=== PATIENT | female | born 1960 | race Caucasian/White ===

== ENCOUNTER 2023-02-19 16:57 | Emergency (ER) | payer SELFPAY ==
[2023-02-19 17:04] VITALS: BP 125/79; PULSE 88; RESP 16; TEMP 36.6; O2SAT 96
--- NOTE | 2023-02-19 19:34 | PC.NURSE ---
patient brought back from waiting room at this time, patient with independent and steady gait. patient states she was in the grocery store and did not notice a grape on the ground, states she stepped on the grape causing her to slip and fall. states her sister witnessed the fall and told patient she fell into a splits position. patient complaining of right shoulder pain, left inner thigh pain, left thumb pain that travels up wrist, and bilateral pain under both buttocks. patient denies LOC and denies head injury. patient was ambulatory after fall without issue. denies visual changes, dizziness, nausea or vomiting.
--- NOTE | 2023-02-19 19:42 | ED.FALL1 ---
HPI - Fall General Chief Complaint: Fall Stated Complaint: NECK, HAND, HIP PAIN FROM FALL AT [employer] Time Seen by Provider: 02/19/23 19:42 Source: patient Mode of arrival: walk-in Limitations: no limitations History of Present Illness HPI Narrative: Patient presents to emergency department complaining of right hip pain. Patient states she fell yesterday. She slipped over something clear at a [employer]. She described the bar with her left arm to break the fall. Causing her to twist her wrist and lower back. She complains of pain to the sacral ischium, and her left foot. She also states she has some pain over the right suprascapular area. She denies any neck pain. She denies any headache. She did not hit her head or have any loss of consciousness. She does not take any blood thinners. She denies any paresthesias, weakness. She denies any urinary, bowel incontinence, retention. Related Data Previous Rx's Medication Instructions Recorded cyclobenzaprine 10 mg tablet 10 mg PO TID PRN muscle spasm #14 02/19/23 tabs Allergies Allergy/AdvReac Type Severity Reaction Status Date / Time mexiletine Allergy Severe Verified 02/19/23 17:02 Sulfa (Sulfonamide Allergy Severe Verified 02/19/23 17:02 Antibiotics) vancomycin Allergy Severe Verified 02/19/23 17:02 Review of Systems ROS Status of ROS 10 or more systems reviewed and unremarkable except as noted in history and below [facility] Social History Smoking status: Never smoker Exam Narrative Exam Narrative: Nurses notes and vital signs reviewed and patient is not hypoxic. General: Nontoxic, Well-appearing and in no apparent distress. Skin: Warm, dry, no pallor noted. No Rash Head: Normocephalic, atraumatic. Neck: Supple, non-tender. Eye: Pupils are equal, round and EOMI. No scleral icterus. Ears, Nose, Mouth, and Throat: TM clear, No hemotympanum,no posterior oropharynx erythema or nasal mucosal hypertrophy, uvula is mid-line Oral mucosa is moist Cardiovascular: Regular Rate and Rhythm without murmur, gallop or rub. Respiratory: No accessory muscle use or respiratory distress. Lungs are clear to auscultation, no wheezing, rales or rhonchi Chest Wall: no tenderness Back: No midline thoracic or lumbar vertebral tenderness. Tenderness to palpation to the left ischium and right sacroiliac junction. No CVA tenderness Musculoskeletal: Tenderness to palpation to the right suprascapular area, no erythema noted. As to palpation to the left 1st metacarpal. There is tenderness only in the palmar surface there is no tenderness to palpation of the snuffbox. Radial pulse +2, capillary refill is brisk. Normal sensation to the thumb, middle finger and pinky. Patient is able to oppose all digits with thumb. normal ROM, no calf or popliteal tenderness, no lower extremity edema/swelling GI: Abdomen is soft, non-distended. Normal bowel sounds. No tenderness to palpation. No rebound, guarding, or rigidity noted. Neurological: A&O x4. No cranial nerve dysfunction observed. No truncal ataxia. Moves all extremities. Sensation intact. Psychiatric: Cooperative and interactive. Normal mood and affect. Constitutional Vital Signs, click to edit/add: Last Vital Signs Temp 97.9 F 02/19/23 17:04 Pulse 88 02/19/23 17:04 Resp 16 02/19/23 17:04 BP 125/79 02/19/23 17:04 Pulse Ox 96 02/19/23 17:04 O2 Del Method Room Air 02/19/23 17:04 Course Vital Signs Vital signs: Vital Signs Temperature 97.9 F 02/19/23 17:04 Pulse Rate 88 02/19/23 17:04 Respiratory Rate 16 02/19/23 17:04 Blood Pressure 125/79 02/19/23 17:04 Pulse Oximetry 96 02/19/23 17:04 Oxygen Delivery Method Room Air 02/19/23 17:04 Temperature 97.9 F 02/19/23 17:04 Pulse Rate 88 02/19/23 17:04 Respiratory Rate 16 02/19/23 17:04 Blood Pressure 125/79 02/19/23 17:04 Pulse Oximetry 96 02/19/23 17:04 Oxygen Delivery Method Room Air 02/19/23 17:04 MDM - Fall MDM Narrative Medical decision making narrative: CT scan of the pelvis did not show any fracture. X-ray of the hand is unremarkable. All results were discussed with patient. The patient takes Ultram at home for respiratory syncytial virus. Patient states didn't take it easy today. She was given a prescription for Flexeril for muscular pain and spasms. She is to take the Ultram and Motrin as needed. At this time the patient is without objective evidence of an acute process requiring hospitalization or inpatient management. The patient has remained hemodynamically stable. No additional indication for emergent studies at this time. I answered all questions. Discussed discharge instructions including standard anticipatory guidance and what should prompt a return to the emergency department, including if they get worse are not getting better or develops any new or concerning symptoms. I've given them specific time frame in which to follow-up, and who to follow-up with. The patient demonstrates understanding. Patient is nontoxic and stable for discharge with outpatient follow-up. This note was created with the assistance of a speech recognition program. Although the intention is to generate documents that actually reflects the content of the visit, no guarantees can be provided that every mistake has been identified and corrected by editing. Discharge Plan Discharge Chief Complaint: Fall Clinical Impression: Contusion, Fall Patient Disposition: Home, Self-Care Time of Disposition Decision: 21:40 Condition: Good Mode of Transportation: EMS Prescriptions / Home Meds: New cyclobenzaprine 10 mg tablet 10 mg PO TID PRN (Reason: muscle spasm) Qty: 14 0RF Instructions: Fall Prevention (ED), Bone Bruise (ED) Stand Alone Forms: Portal Instructions Referrals: GRAEME KEVIN APRN [Physician] - 1 week Discharge Date/Time: 02/19/23 21:52
--- NOTE | 2023-02-19 19:49 | CT_ITS ---
The [address] [address] Patient Name: EBONY LEE MRN: [id number] date: 1960 Sex: F Assigned Patient Location: ER Current Patient Location: ER Accession/Order Number: [id number] Exam Date: 02/19/2023 20:05 Report Date: 02/19/2023 21:12 At the request of: CARLOS CHAMPAGNE Procedure: CT pelvis wo con EXAM: CT pelvis wo con HISTORY: pain, fall COMPARISON: None. TECHNIQUE: Multiple axial images of the pelvis are obtained without the use of IV contrast material. Coronal and sagittal reformatted sequences are submitted for review. FINDINGS: No acute fracture is seen. Joint alignment is normal. Joint spaces are preserved. The visualized soft tissues appear unremarkable. The urinary bladder appears unremarkable. Sigmoid diverticula are seen without significant associated inflammatory changes. No significant free fluid or abnormal fluid collection is seen in the pelvis. CT/CT pelvis wo con IMPRESSION: No acute fracture or malalignment. Sigmoid diverticulosis without CT evidence for diverticulitis. Electronically authenticated by: AUGUSTA DUNAWAY Date: 02/19/2023 21:12
--- NOTE | 2023-02-19 19:51 | XR_ITS ---
The [address] [address] Patient Name: EBONY LEE MRN: [id number] date: 1960 Sex: F Assigned Patient Location: ER Current Patient Location: Accession/Order Number: [id number] Exam Date: 02/19/2023 20:05 Report Date: 02/19/2023 20:54 At the request of: CARLOS CHAMPAGNE Procedure: XR hand LT min 3V EXAM: XR hand LT min 3V HISTORY: pain, fall COMPARISON: None. TECHNIQUE: 3 views of the left hand are performed. FINDINGS: There is no acute fracture. The bony structures are intact. There are degenerative changes within the hand and wrist, greatest at the first CMC joint, and within the fifth DIP joint. The soft tissues are unremarkable. XR/XR hand LT min 3V IMPRESSION: No acute bony abnormality. Degenerative changes, as described above. Electronically authenticated by: CRISTOBAL EMANUEL Date: 02/19/2023 20:54
== END 2023-02-19 21:52 | disposition home or self-care (01) ==
PROVIDERS: Emergency Provider Emergency Medicine
DX: T14.8XXA Other injury of unspecified body region, initial encounter (principal); W01.0XXA Fall on same level from slipping, tripping and stumbling without subsequent striking against object, initial encounter
CPT/HCPCS: 72192; 73130; 99284